=== PATIENT | female | born 1945 | race Caucasian/White ===

== ENCOUNTER → 2021-06-28 09:21 | Outpatient (CLI) | payer MEDICARE, SELFPAY ==
[2021-06-28 11:03] LABS: COVID19 -Nasal RAPID Negative (Negative)
== END ==
PROVIDERS: Family Provider Nurse Practitioner; PCP Nurse Practitioner; Visit Provider Physician Assistant
DX: Z01.812 Encounter for preprocedural laboratory examination (principal); Z20.822 Contact with and (suspected) exposure to COVID-19
CPT/HCPCS: 87635; C9803

== ENCOUNTER → 2021-08-24 09:38 | Outpatient (CLI) | payer MEDICARE, SELFPAY ==
--- NOTE | 2021-08-24 09:40 | DI.MRI.S_ITS ---
PROCEDURE: MR HEAD/BRAIN WO CON INDICATIONS: MEMORY LOSS TECHNIQUE: Non-contrast axial T1 spin echo, axial T2 fast spin echo, sagittal and axial FLAIR, coronal T2 fast spin echo, axial gradient echo, axial diffusion and ADC through the brain. COMPARISON: None. FINDINGS: Image quality: Excellent. CSF spaces: Ventricles appear symmetric in size and shape. Basal cisterns are patent. No extra-axial fluid collections. Brain: No intracranial bleeds or mass effects. There is cerebral volume loss for age. There are periventricular and deep white matter chronic small vessel ischemic changes. Brainstem demonstrates area increased T2/all cap FLAIR signal suggestive of chronic microvascular change. Diffusion-weighted images show no acute ischemic insults. Normal intravascular flow voids are present. Skull and face: Calvarial bone marrow is normal in signal. Orbits are normal. Sinuses: Sinuses and mastoids are clear. IMPRESSION: 1. No acute intracranial process. 2. Moderate atrophy and chronic microvascular ischemic changes. Dictated by: Sole Bernal M.D. on 08/26/2021 at 10:56 Approved by: Sole Bernal M.D. on 08/26/2021 at 10:57
== END ==
PROVIDERS: Family Provider Nurse Practitioner; PCP Nurse Practitioner; Referring Provider Family Medicine; Visit Provider Family Medicine
DX: R41.3 Other amnesia (principal); R41.89 Other symptoms and signs involving cognitive functions and awareness
CPT/HCPCS: 70551

== ENCOUNTER 2022-08-20 15:02 | Emergency (ER) | payer MEDICARE, SELFPAY ==
[2022-08-20] VITALS (7 sets, daily range): BP systolic 143–166; BP diastolic 74–82; PULSE 65–82; RESP 18; TEMP 36.6; O2SAT 95–97; BMI 39.0
--- NOTE | 2022-08-20 16:04 | DI.RAD.S_ITS ---
PROCEDURE: XR SHOULDER RT MIN 2V INDICATIONS: Fall TECHNIQUE: 3 views of the shoulder were acquired. COMPARISON: None. FINDINGS: Bones: No fractures or dislocations. No suspicious bony lesions. Visualized ribs appear intact. Soft tissues: No suspicious soft tissue calcifications. IMPRESSION: No visualized acute fracture or dislocation. However, if clinical concern and/or pain persist, short interval imaging followup in 7-10 days is recommended, as occult injury cannot be definitively excluded. Dictated by: Sole Bernal M.D. on 08/20/2022 at 16:37 Approved by: Sole Bernal M.D. on 08/20/2022 at 16:37
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
--- NOTE | 2022-08-20 16:33 | DI.RAD.S_ITS ---
PROCEDURE: XR right knee INDICATIONS: fall. Right knee pain. TECHNIQUE: Two views of the right knee were obtained COMPARISON: [facility], CR, XR SHOULDER RT MIN 2V, 08/20/2022, 16:03. FINDINGS: Bones: Total right knee arthroplasty in good position. No evidence of hardware failure or loosening. No fracture. Soft tissues: No suspicious soft tissue calcifications or masses. IMPRESSION: Total right knee arthroplasty in good position. No fracture. Approved by: Gilles Biggs M.D. on 08/20/2022 at 16:33
[2022-08-20 16:48] LABS: Hematocrit 34.3 % (36-46); Hemoglobin 11.4 g/dL (12.0-16.0); Mean Corpuscular HGB Conc 33.3 % (30-36); Mean Corpuscular Hemoglobin 31.4 PG (26-34); Mean Corpuscular Volume 94.1 fL (80-100); Platelet Count 256 X10^3/uL (150-400); Red Blood Cell Count 3.65 X10^6/uL (4.0-5.2); Red Cell Distribution Width 13.8 % (11.6-14.8); White Blood Cell Count 10.1 X10^3/uL (4.5-11.0)
[2022-08-20 16:51] LABS: Appearance Urine UA CLEAR; Bilirubin Urine UA NEGATIVE (NEGATIVE); Color Urine UA YELLOW; Glucose Urine UA NEGATIVE (Negative); Ketones Urine UA NEGATIVE (NEGATIVE); Leukocyte Esterase Urine UA NEGATIVE (NEGATIVE); Nitrite Urine UA NEGATIVE (Negative); Occult Blood Urine UA NEGATIVE (Negative); Protein Urine UA 1+ (Negative); Urobilinogen Urine UA 0.2 E.U./dL (0.2)
[2022-08-20 16:56] LABS: Potassium 4.8 mmol/L (3.4-5.1)
[2022-08-20 16:57] LABS: Alanine Aminotransferase 31 IU/L (<35); Albumin 4.6 g/dL (3.5-5.0); Albumin Globulin Ratio 1.2 (1.0-2.8); Alkaline Phosphatase 77 U/L (38-126); Aspartate Aminotransferase 35 IU/L (14-36); BUN Creatinine Ratio 37.2 (6-22); Bilirubin Total 1.1 mg/dL (0.2-1.3); Blood Urea Nitrogen 35 mg/dL (7-17); Calcium 9.8 mg/dL (8.4-10.2); Carbon Dioxide 26 mmol/L (22-32); Chloride 106 mmol/L (98-107); Estimated Glomerular Filt Rate > 60 mL/min (>60); Ethanol (ETOH) < 10 mg/dL; Globulin 3.8 g/dL (1.7-4.1); Glucose 102 mg/dL (80-110); Sodium 142 mmol/L (137-145); Total Protein 8.4 g/dL (6.3-8.2)
[2022-08-20 17:00] LABS: HEMOLYSIS 120 (0-50)
[2022-08-20 17:01] LABS: UR Morphine/Opiate cutoff 300 Negative (Negative); Ur Creatinine Normal (Normal); Ur Specific Gravity Normal (Normal); Urine Amphetamines Negative (Negative); Urine Barbiturates Negative (Negative); Urine Benzodiazepines Negative (Negative); Urine Cocaine Negative (Negative); Urine MDMA Negative (Negative); Urine Methadone Negative (Negative); Urine Methamphetamines Negative (Negative); Urine Oxycodone Negative (Negative); Urine Phencyclidine Negative (Negative); Urine Tetrahydrocannabinol Negative (Negative); Urine Tricyclic Antidepressant Negative (Negative); Urine pH Normal (Normal)
[2022-08-20 17:12] LABS: RBC Urine 0-1/HPF (0-5/HPF); Squamous Epithelial Cell Urine 10-30 /HPF (0-5/HPF); Transitional Epi Cells Urine 1-5/HPF (0-5/HPF); WBC Urine 0-1/HPF (0-5/HPF)
[2022-08-20 17:13] LABS: Amorphous Sediment Urine 1+; Bacteria Urine None Seen; Culture Indicated Urine Cult Not Indicated; Granular Casts Urine 1-5/LPF
[2022-08-20 17:22] LABS: Add Manual Diff / Slide Review NO; Basophils Absolute Auto 100 /uL (0-100); Basophils Percent Auto 0.6 % (0-2); Eosinophils Absolute Auto 100 /uL (0-450); Eosinophils Percent Auto 1.2 % (2-4); Lymphocytes Absolute Auto 1900 /uL (1100-4500); Lymphocytes Percent Auto 19.4 % (25-40); Monocytes Absolute Auto 900 /uL (0-900); Neutrophils Absolute Auto 6900 /uL (1500-7000); Neutrophils Percent Auto 69.8 % (50-75)
--- NOTE | 2022-08-20 18:58 | CM.SWNOTE ---
SENIOR PUBLICATIONS SPECIALIST/DCP Note SENIOR PUBLICATIONS SPECIALIST receives consult from ED provider Dr. Wade due to patient's friend's concern for patient. Patient is 77 y/o female who presents to ED with friend after patient's recent GLF today. Patient has PCP with [facility], patient has [facility] and Medicare insurance. Patient has hx of Asthma, Diabetes, Hypertension and Mixed hyperlipidemia. SENIOR PUBLICATIONS SPECIALIST enters room to meet with patient. Patient presents alone and states her friend left to catch the ferry home. Patient presents as A/Ox3, patient answers questions correctly in correspondence to the day of the week, the year and the name of the president. Patient endorses her daughter is on her way driving up from [place], [place] to visit patient. Patient presents she fell today when she slipped in the bathroom on a sheet. Patient endorses a few recent GLFs. Patient endorses she uses a cane sometimes and also has a FWW at home. Patient endorses independence with ADLs. Patient endorses she resides alone at home in [place], patient reports friends and neighbors close by as supports. SENIOR PUBLICATIONS SPECIALIST encourages patient to f/u with PCP, patient endorses agreement and understanding. Plan: Patient to continue further ED medical evaluation and d/c to home upon medical clearance. LUIS FELIPE Haider
--- NOTE | 2022-08-20 19:03 | PC.NURSE ---
Pt ambulated to bathroom with TONAL REGULATOR, utilized cane and walked with a slow but steady gait.
== END 2022-08-20 19:43 | disposition home or self-care (01) ==
PROVIDERS: Emergency Provider Emergency Medicine; Family Provider Nurse Practitioner; PCP Nurse Practitioner
DX: M25.511 Pain in right shoulder (principal); I10 Essential (primary) hypertension; E11.9 Type 2 diabetes mellitus without complications; R41.89 Other symptoms and signs involving cognitive functions and awareness; W06.XXXA Fall from bed, initial encounter; R29.6 Repeated falls; M25.561 Pain in right knee
CPT/HCPCS: 36415; 73030; 73560; 80053; 80305; 80320; 81001; 85025; 99283; 99284